=== PATIENT | female | born 1970 | race Caucasian/White ===

== ENCOUNTER 2024-07-01 16:51 | Emergency (ER) | payer OTHER ==
[2024-07-01] MEDS ORDERED: Acetaminophen 500 MG TAB ONE (19:01)
[2024-07-01] MEDS ORDERED: Ibuprofen 800 MG TAB ONE (19:07)
[2024-07-01] MEDS ORDERED: predniSONE 20 MG TAB ONE (19:10)
== END 2024-07-01 20:08 | disposition home or self-care (01) ==
LOC: ERS 16:51
DX: J10.1 Influenza due to other identified influenza virus with other respiratory manifestations (principal); R51.9 Headache, unspecified
CPT/HCPCS: 71046; 87428; J7512